=== PATIENT | male | born 1995 | race Asian ===

== ENCOUNTER 2017-01-29 12:51 | Emergency (ER) | payer OTHER ==
[2017-01-29 13:10] VITALS: BP 147/90; PULSE 84; TEMP 98.6; BMI 25.8
--- NOTE | 2017-01-29 13:13 | PDOC ---
History of Present Illness - General Chief Complaint: Laceration Stated Complaint: LT HAND INJURY Time Seen by Provider: 01/29/17 13:11 History Source: Patient Exam Limitations: No Limitations - History of Present Illness Initial Comments: CHIEF COMPLAINT: 21 y/o male with laceration to palm of left hand from a beer bottle that happened 12 hours ago. HISTORY OF PRESENT ILLNESS: He states he cleaned it with water and alcohol. He is UTD on tetanus. He denies decreased ROM of fingers of affected hand, as well as numbness/tingling. Vital signs on arrival are within normal limits. REVIEW OF SYSTEMS: GENERAL/CONSTITUTIONAL: No fever/chills. No weakness. No weight change. MUSCULOSKELETAL: No joint or muscle swelling or pain. No neck or back pain. SKIN: 2 lacerations to left palm. NEUROLOGIC: No headache, vertigo, loss of consciousness, or loss of sensation. PHYSICAL EXAM: VITAL_SIGNS: within normal limits GENERAL_APPEARANCE: alert, cooperative, no obvious discomfort. MENTAL_STATUS: speech clear, oriented X 3, responds appropriately to questions. NEURO: motor intact and sensory intact in injured extremity. EXTREMITIES: good pulse in injured extremity. Full flexion and extension of left fingers and wrist. flap laceration to palm, as well as 1.5cm linear laceration to palm. Both lacerations have well approximated margins without active bleeding. No tendon involvement. SKIN: warm, dry, good color. Past History - Past Medical History Allergies/Adverse Reactions: Allergies Allergy/AdvReac Type Severity Reaction Status Date / Time No Known Allergies Allergy Verified 01/29/17 13:06 Home Medications: Ambulatory Orders NK [No Known Home Medication] 01/29/17 Other medical history: none - Psycho/Social/Smoking Cessation Hx Anxiety: No Suicidal Ideation: No Smoking History: Never smoked Have you smoked in the past 12 months: No Information on smoking cessation initiated: No Hx Alcohol Use: Yes (social) Drug/Substance Use Hx: No Substance Use Type: None *Physical Exam - Vital Signs Last Vital Signs Temp Pulse Resp BP Pulse Ox 98.6 F 84 18 147/90 100 01/29/17 13:07 01/29/17 13:07 01/29/17 13:07 01/29/17 13:07 01/29/17 13:07 Procedures - Laceration/Wound Repair Left Volar Hand Wound Length: 2.6 to 5.0 cm Wound Explored: clean Wound's Depth, Shape: linear (2 separate lacerations; 1 flap, 1 linear), flap Irrigated w/ Saline: Yes Betadine Prep: Yes Anesthesia: 1% Lidocaine Amount of Anesthetic (ccs): 5 Wound Debrided: minimal Wound Repaired With: Sutures Suture Size/Type: 4:0 Number of Sutures: 6 Sterile Dressing Applied: Yes Progress: 01/29/17 14:05 Pt tolerated procedure well Medical Decision Making - Medical Decision Making A/P: 21 y/o male with 2 lacerations to left palm. The patient states he is UTD on tetanus. used lidocaine without epi to block the area. Cleaned the wounds vigorously with hydrogen peroxide and betadine. No foreign bodies present. Pt tolerated suturing well. Covered with bacitracin, bandaid and DORINDA bandage. Instructed him to keep wound clean and dry and return in 7-10 days for suture removal. The patient verbalizes understanding of all instructions, has no further questions and is awaiting discharge. *DC/Admit/Observation/Transfer Diagnosis at time of Disposition: Hand laceration Qualifiers: Encounter type: initial encounter Foreign body presence: without foreign body Laterality: left Qualified Code(s): S61.412A - Laceration without foreign body of left hand, initial encounter - Discharge Dispostion Disposition: HOME Condition at time of disposition: Improved - Patient Instructions Printed Discharge Instructions: DI for Laceration Repair Additional Instructions: Discharge Instructions: -Keep wound clean and dry -Return to the ER or your regular doctor in 7-10 days for suture removal
== END 2017-01-29 14:14 | disposition home or self-care (01) ==
LOC: JERFT 12:51
PROC: 0HQGXZZ Repair Left Hand Skin, External Approach (ICD-10-PCS; principal; 2017-01-29)
DX: S61.412A Laceration without foreign body of left hand, initial encounter (principal); W25.XXXA Contact with sharp glass, initial encounter; Y93.89 Activity, other specified; Y92.89 Other specified places as the place of occurrence of the external cause
CPT/HCPCS: 99281-25

== ENCOUNTER 2017-02-10 20:11 | Emergency (ER) | payer OTHER ==
[2017-02-10 20:30] VITALS: BP 128/63; PULSE 63; TEMP 98.6; BMI 25.8
--- NOTE | 2017-02-10 20:46 | PDOC ---
Suture Removal/Wound Check HPI - History of Present Illness Chief Complaint: Suture/Staple Removal(Here) Stated Complaint: STITCHES REMOVAL Time Seen by Provider: 02/10/17 20:35 History Source: Yes: Patient Exam Limitations: Yes: No Limitations Past History - Past Medical History Allergies/Adverse Reactions: Allergies No Known Allergies Allergy (Verified 02/10/17 20:28) Home Medications: Ambulatory Orders NK [No Known Home Medication] 01/29/17 - Immunization History Tetanus Status: Unknown - Social History Smoking Status: Never smoked Medical Decision Making - Medical Decision Making A/P: 21 y/o male here for suture removal from left hand. 6 sutures placed on by myself. wound healed well. Pt denies fever. Removed 6 sutures and margins remained intact. Skin around scars are hard - suggested vitamin E oil to soften. The patient verbalizes understanding of all instructions, has no further questions and is awaiting discharge. *DC/Admit/Observation/Transfer Diagnosis at time of Disposition: Visit for suture removal - Referrals Referrals: Jon Cao MD [Primary Care Provider] - - Patient Instructions Printed Discharge Instructions: DI for Suture Removal
== END 2017-02-10 20:47 | disposition home or self-care (01) ==
LOC: JERFT 20:11
DX: Z48.02 Encounter for removal of sutures (principal)
CPT/HCPCS: 99281-25